=== PATIENT | male | born 1980 | race Caucasian/White ===

== ENCOUNTER 2022-04-24 18:47 | Emergency (ER) | payer OTHER ==
[~2022-04-24] VITALS: Ht 172.7 cm; Wt 67.0 kg
[2022-04-24 18:50] VITALS: BP 108/70
[2022-04-24] MEDS ORDERED: DOXYCYCLINE HYCLATE 100MG CAPSULE PO ONE (19:45)
[2022-04-24] MEDS ORDERED: PENICILLIN G BENZATHINE 2,400,000 UNITS/4ML SYR IM ONE (19:45)
[2022-04-24] MEDS ORDERED: CEFTRIAXONE SODIUM 500 MG/VIAL IM ONE (19:45)
[2022-04-24] MEDS ORDERED: DOXY100T2 MT (21:19)
== END 2022-04-24 21:42 ==
LOC: ER 18:47
DX: A53.9 Syphilis, unspecified (principal); R59.0 Localized enlarged lymph nodes
CPT/HCPCS: 86592; 86593; 86780; 96372; 99284; J0561; J0696